=== PATIENT | female | born 1980 | race Two or more races ===

== ENCOUNTER 2017-01-01 08:44 | Emergency (ER) | payer OTHER ==
--- NOTE | 2017-01-01 08:56 | EDPHY ---
H & P Stated Complaint: migraine since yesterday n/v Time Seen by Provider: 01/01/17 08:55 - Personal History LMP (Females 10-55): 1-7 Days Ago Current Tetanus/Diphtheria Vaccine: Yes - Medical/Surgical History Hx Asthma: No Hx Chronic Respiratory Disease: No Hx Diabetes: No Hx Cardiac Disease: No Hx Renal Disease: No Hx Cirrhosis: No Hx Alcoholism: No Hx HIV/AIDS: No Hx Splenectomy or Spleen Trauma: No Other PMH: migraines - Social History Smoking Status: Never smoked Constitutional: Initial Vital Signs Temperature (C) 36.6 C 01/01/17 08:47 Heart Rate 62 01/01/17 08:47 Respiratory Rate 18 01/01/17 08:47 Blood Pressure 138/91 H 01/01/17 08:47 O2 Sat (%) 96 01/01/17 08:47 O2 Delivery Mode Room Air Allergies/Adverse Reactions: No Known Allergies Allergy (Unverified 01/01/17 08:46) Home Medications: Medication Instructions Recorded Propranolol HCl 20 mg PO BID #60 tablet 01/01/17 Medical Decision Making - Diagnostics Imaging Results: Imaging Impressions Brain MRI 01/01/17 09:13 Impression: 1. Several nonspecific hyperintense T2/FLAIR signal abnormalities in the white matter of bilateral cerebral hemispheres. Differential diagnosis includes mild microvascular ischemic gliosis, migraine-related sequela, vasculitis, atypical demyelinating disease, or postinfectious/postinflammatory sequela. 2. No acute infarct, acute hemorrhage, hydrocephalus, or mass effect. 3. No sinusitis. 4. No evidence of superior sagittal sinus thrombosis. 5. No enhancing lesions. Findings discussed with Emergency Department physician, Chema Evans MD, at 1319 hours, 01/01/2017. Final report concurs with initial preliminary interpretation. Imaging: Discussed imaging studies w/ editor book Radiologist, I viewed and interpreted images myself ED Course/Re-evaluation: CHIEF COMPLAINT: Migraine HISTORY OF PRESENT ILLNESS: The patient is a 36 y/o female complaining of severe intermittent migraines increasing in frequency and intensity over the past 4 months. She has a history of migraines and until recently has only experienced one every 2 months. For the last 4 months she has had a migraine almost every week, and for the last few weeks she has been having them every few days. Last night She developed the same type of migraine localized primarily behind her eyes, associated with nausea, vertigo, photophobia, and sinus pain. She took Tylenol Sinus and sinus spray without alleviation. Her notes that she's had chronic sinus pain which may be related to her migraines. She has never had prior neurologic imaging nor does she take a prophylactic migraine medication. REVIEW OF SYSTEMS: A 10 point review of systems was performed and is negative with the exception of the elements mentioned in the history of present illness. PHYSICAL EXAM: HR, BP, O2 Sat, RR. Temp noted General Appearance: Alert, appears uncomfortable, sitting in a dark room, well hydrated, appropriate. Head: Atraumatic without scalp tenderness or obvious injury Eyes: Photophobia, pupils equal, round, reactive to light and accommodation, EOMI, no trauma, no injection. Ears: Clear bilaterally, no perforation, normal landmarks Nose: Atraumatic, no rhinorrhea, clear. Throat: There is no erythema or exudates, no lesions, normal tonsils, mucus membranes moist. Neck: Supple, nontender, no lymphadenopathy. Respiratory: No retractions, no distress, no wheezes, and no accessory muscle use. Lungs are clear to auscultation bilaterally. Cardiovascular: Regular rate and rhythm, no murmurs, rubs, or gallops. Good capillary refill all extremities. Gastrointestinal: Abdomen is soft, nontender, non-distended, no masses, no rebound, no guarding, no peritoneal signs. Musculoskeletal: Normal active ROM of all extremities, atraumatic. Neurological: Alert, appropriate, and interactive. Non-focal neuro exam. Skin: No rashes, good turgor, no nodules on palpation. Past medical history: History of migraines Past surgical history: Denies Family history: Noncontributory Social history: at bedside. Employed, lives in [place]. DIAGNOSTICS/PROCEDURES/CRITICAL CARE TIME: MRI Brain with and without IV contrast: results are unremarkable. White matter changes are consistent with migraine. DIFFERENTIAL DIAGNOSIS: The differential diagnosis for the patient's headache included but was not limited to subarachnoid hemorrhage, migraine headache, tension headache and infectious causes such as meningitis, pharyngitis and sinusitis. MEDICAL DECISION MAKING: This is a 36 y/o female presenting with severe migraines increasing in frequency and intensity over the past 4 months. She appears uncomfortable and photophobic. Her neuro exam is grossly normal. Plan for IV, labs and symptom management. Plan for MRI with and without contrast in order to rule out structural etiology. 10mg IV Decadron, 5mg IV Ketamine, 30mg IV Ketorolac, 5mg IV Metoclopramide given for symptoms. Reassessed patient who states she is feeling 75% better after receiving migraine cocktail. Will proceed with plan for MRI with and without contrast. 5mg IV Ketamine and 5mg IV Metoclopramide given for continued symptoms. MRI is negative for acute process; it does show white matter changes consistent with migraine. Reassessed patient and discussed work up. She is feeling 90% better and is no longer experiencing photophobia. She is sitting up and laughing. I discussed discharge and follow up instructions with patient. I referred her to neurology and wrote a script for propranolol to be used prophylactically for migraines. She understands and agrees to this plan. Strict return precautions given. - Data Points Laboratory Results: 01/01/17 09:21 POC Hgb 12.9 gm/dL gm/dL (12.6-16.3) POC Hct 38 % % (38-47) POC Sodium 143 mEq/L mEq/L (134-144) POC Potassium 3.7 mEq/L mEq/L (3.3-5.0) POC Chloride 107 mEq/L mEq/L (97-110) POC BUN 16 mg/dL mg/dL (7-23) POC Creatinine 0.8 mg/dL mg/dL (0.6-1.0) POC Glucose 86 mg/dL mg/dL (70-100) Medications Given: Discontinued Medications Dexamethasone (Decadron Injection) 10 mg IVP EDNOW ONE Stop: 01/01/17 09:00 Last Admin: 01/01/17 09:06 Dose: 10 mg Ketamine HCl (Ketamine) 5 mg IVP EDNOW ONE Stop: 01/01/17 09:00 Last Admin: 01/01/17 09:06 Dose: 5 mg Ketamine HCl (Ketamine) 5 mg IVP EDNOW ONE Stop: 01/01/17 12:55 Last Admin: 01/01/17 13:01 Dose: 5 mg Ketorolac Tromethamine (Toradol) 30 mg IVP EDNOW ONE Stop: 01/01/17 09:00 Last Admin: 01/01/17 09:06 Dose: 30 mg Metoclopramide HCl (Reglan Injection) 10 mg IVP EDNOW ONE Stop: 01/01/17 09:00 Last Admin: 01/01/17 09:07 Dose: 10 mg Metoclopramide HCl (Reglan Injection) 5 mg IVP EDNOW ONE Stop: 01/01/17 12:55 Last Admin: 01/01/17 13:01 Dose: 5 mg Point of Care Test Results: 01/01/17 09:21 POC Sodium 143 POC Potassium 3.7 POC Chloride 107 POC BUN 16 POC Creatinine 0.8 POC Glucose 86 Departure - Departure Disposition: Home, Routine, Self-Care Clinical Impression: Migraine Qualifiers: Migraine type: other Status migrainosus presence: without status migrainosus Intractability: not intractable Qualified Code(s): G43.809 - Other migraine, not intractable, without status migrainosus Condition: Good Instructions: Migraine Headache (ED) Additional Instructions: 1. Follow up with Dr. Gu, neurology, in the next week to discuss group home migraine treatment options. 2. Take 20mg Propranolol twice/day for migraine prophylaxis. 3. Take Excedrin migraine as directed on packaging for migraine pain as needed. 3. Return to the emergency department if you experience any difficulty with speech, weakness or numbness on one side of your body, fever, or other worsening of condition. Referrals: Patient,NotPresent [Primary Care Provider] - As per Instructions Barrett Gu MD [Medical Doctor] - As per Instructions Prescriptions: Propranolol HCl 20 mg PO BID #60 tablet Report Scribed for: Chema Evans Report Scribed by: Roxanne Jacob Date of Report: 01/01/17 Time of Report: 14:13
[2017-01-01] MEDS ORDERED: KETAMINE 100 MG/10 ML SYR IVP ONE (08:59)
[2017-01-01] MEDS ORDERED: KETOROLAC 30 MG/1 ML SDV IVP ONE (08:59)
[2017-01-01] MEDS ORDERED: METOCLOPRAMIDE 10 MG/2 ML VIAL IVP ONE ×2 (08:59→12:54)
[2017-01-01] MEDS ORDERED: DEXAMETHASONE 10 MG/ML VIAL IVP ONE (08:59)
--- NOTE | 2017-01-01 09:08 | EDPHY ---
H & P Stated Complaint: migraine since yesterday n/v Time Seen by Provider: 01/01/17 08:55 - Personal History LMP (Females 10-55): 1-7 Days Ago Current Tetanus/Diphtheria Vaccine: Yes - Medical/Surgical History Hx Asthma: No Hx Chronic Respiratory Disease: No Hx Diabetes: No Hx Cardiac Disease: No Hx Renal Disease: No Hx Cirrhosis: No Hx Alcoholism: No Hx HIV/AIDS: No Hx Splenectomy or Spleen Trauma: No Other PMH: migraines - Social History Smoking Status: Never smoked Constitutional: Initial Vital Signs Temperature (C) 36.6 C 01/01/17 08:47 Heart Rate 62 01/01/17 08:47 Respiratory Rate 18 01/01/17 08:47 Blood Pressure 138/91 H 01/01/17 08:47 O2 Sat (%) 96 01/01/17 08:47 O2 Delivery Mode Room Air Allergies/Adverse Reactions: No Known Allergies Allergy (Unverified 01/01/17 08:46) Home Medications: Medication Instructions Recorded NK [No Known Home Meds] 01/01/17 Medical Decision Making - Data Points Medications Given: Discontinued Medications Dexamethasone (Decadron Injection) 10 mg IVP EDNOW ONE Stop: 01/01/17 09:00 Last Admin: 01/01/17 09:06 Dose: 10 mg Ketamine HCl (Ketamine) 5 mg IVP EDNOW ONE Stop: 01/01/17 09:00 Last Admin: 01/01/17 09:06 Dose: 5 mg Ketorolac Tromethamine (Toradol) 30 mg IVP EDNOW ONE Stop: 01/01/17 09:00 Last Admin: 01/01/17 09:06 Dose: 30 mg Metoclopramide HCl (Reglan Injection) 10 mg IVP EDNOW ONE Stop: 01/01/17 09:00 Last Admin: 01/01/17 09:07 Dose: 10 mg
[2017-01-01 09:19] VITALS: RESP 16
[2017-01-01] MEDS ORDERED: GADOBUTROL 10 ML VIAL IVP ONE (12:23)
[2017-01-01 12:52] VITALS: BP 124/89; PULSE 62; TEMP 98.1; O2SAT 95
[2017-01-01] MEDS ORDERED: KETAMINE 500 MG/10 ML VIAL IVP ONE (12:54)
[2017-01-01] MEDS ORDERED: KETAMINE 100 MG/10 ML SYR ONE (12:58)
== END 2017-01-01 13:41 | disposition home or self-care (01) ==
DX: G43.809 Other migraine, not intractable, without status migrainosus (principal)
CPT/HCPCS: 82947-QW; 96374; A9585; J1100; J1885; J2765